=== PATIENT | male | born 1930 | race Caucasian/White ===

== ENCOUNTER 2017-03-16 13:59 | Emergency (ER) | payer MEDICARE, OTHER ==
[~2017-03-16] VITALS: Ht 165.1 cm; Wt 61.7 kg
--- NOTE | 2017-03-16 14:50 | NUR ---
[id number] FROM HOME FLU LIKE SYMPTOMS SINCE YESTERDAY. VSS
--- NOTE | 2017-03-16 15:15 | NUR ---
DR. HODGES AT BEDSIDE
[2017-03-16] MEDS ORDERED: IV NS 0.9% 500 ML BAG IV ONE (15:30)
[2017-03-16 15:50] LABS: BASOPHILS % (AUTO) 0.2 % (0.0-2.0); EOSINOPHILS % (AUTO) 0.1 % (0.0-6.0); HEMATOCRIT 37 % (39-51); HEMOGLOBIN 12.8 g/dL (13.5-17.5); LYMPHOCYTES # (AUTO) 0.4 /CMM (0.8-4.8); LYMPHOCYTES % (AUTO) 4.1 % (20.0-44.0); MEAN CORPUSCULAR HEMOGLOBIN 30 PG (26.0-33.0); MEAN CORPUSCULAR HGB CONC 34 g/dl (31.0-36.0); MEAN CORPUSCULAR VOLUME 87 fL (80-96); MONOCYTES # (AUTO) 0.4 /CMM (0.1-1.30); MONOCYTES % (AUTO) 4.7 % (2.0-12.0); NEUTROPHILS # (AUTO) 8.4 /CMM (1.8-8.9); NEUTROPHILS % (AUTO) 90.9 % (43.0-81.0); PLATELET COUNT (AUTO) 165 /CMM (150-450); RDW COEFFICIENT OF VARIATION 15.7 (11.5-15.0); RED BLOOD CELL COUNT(AUTO) 4.28 MIL/uL (4.5-6.0); WHITE BLOOD COUNT (AUTO) 9.3 K/uL (4.3-11.0)
[2017-03-16 15:55] LABS: CALCIUM, SERUM 8.7 mg/dL (8.5-10.1); CARBON DIOXIDE 24 mmol/L (21-32); CHLORIDE 101 mmol/L (98-107); CREATININE 1.1 mg/dL (0.6-1.3); GLUCOSE 108 mg/dL (74-106); POTASSIUM 4.3 mmol/L (3.5-5.1); SODIUM SERUM 130 mmol/L (136-145); UREA NITROGEN, BLOOD 19 mg/dL (7-18)
[2017-03-16 15:58] LABS: INR 1.99 (0.87-1.13); PROTHROMBIN TIME 20.7 SECS (9.5-12.7)
[2017-03-16 16:01] LABS: ALANINE AMINOTRANSFERASE 8 U/L (12-78); ALKALINE PHOSPHATASE 94 U/L (46-116); ASPARTATE AMINOTRANSFERASE 37 U/L (15-37); BILIRUBIN,DIRECT 0.2 mg/dL (0.0-0.2); BILIRUBIN,TOTAL 1.3 mg/dL (0.2-1.0); TOTAL PROTEIN, SERUM 6.4 g/dL (6.4-8.2)
[2017-03-16 16:03] LABS: TROPONIN I 0.023 ng/mL (0.00-0.056)
[2017-03-16] MEDS ORDERED: ONDANSETRON HCL/PF 4 MG/2 ML VIAL ONE (16:19)
[2017-03-16] MEDS ORDERED: ONDANSETRON HCL/PF 4 MG/2 ML VIAL IV ONE (16:30)
[2017-03-16] MEDS ORDERED: FLUT9.9S BNOSTRILS (16:45)
[2017-03-16] MEDS ORDERED: ATEN25TA PO (16:45)
[2017-03-16] MEDS ORDERED: DOXY100C2 PO (16:45)
[2017-03-16] MEDS ORDERED: LATA2.5D7 EACHEYE (16:45)
[2017-03-16] MEDS ORDERED: LOSA100T3 PO (16:45)
[2017-03-16] MEDS ORDERED: SULF1TAB48 PO (16:45)
[2017-03-16] MEDS ORDERED: ALBU18HF2 INH (16:45)
[2017-03-16] MEDS ORDERED: RANI150T12 PO (16:45)
[2017-03-16] MEDS ORDERED: PRED20TA PO (16:45)
[2017-03-16] MEDS ORDERED: WARF5TAB6 PO (16:45)
[2017-03-16] MEDS ORDERED: CARB-93 PO (16:45)
[2017-03-16] MEDS ORDERED: FINA5TAB3 PO (16:45)
[2017-03-16] MEDS ORDERED: TERA2CAP4 PO (16:45)
[2017-03-16] MEDS ORDERED: ATOR40TA PO (16:45)
[2017-03-16 17:09] LABS: APPEARANCE,URINE Slightly Cloudy (CLEAR); BILIRUBIN,URINE Negative (NEGATIVE); BLOOD, URINE Large Ery/uL (NEGATIVE); COLOR,URINE Yellow (YELLOW); KETONES,URINE Trace (NEGATIVE); LEUKOCYTE ESTERASE ,URINE Moderate (NEGATIVE); NITRITE, URINE Positive (NEGATIVE); PROTEIN,URINE 100 mg/dl (NEGATIVE); UGLUCOSE Negative (NEGATIVE); UROBILINOGEN,URINE 0.2 EU/dL (0.2)
[2017-03-16 17:21] LABS: BACTERIA,URINE Moderate /HPF (None Seen); RBC,URINE 21-50 /HPF (0-2); SQUAMOUS EPITHELIAL CELL,UR Few /HPF (None Seen)
--- NOTE | 2017-03-16 17:35 | NUR ---
[facility], EXPECTING A CALL BACK FROM [facility]
[2017-03-16] MEDS ORDERED: CEFTRIAXONE 1GM BAG (ER ONLY) 1 GM/50 ML PIGGYBACK IV ONE (18:00)
[2017-03-16] MEDS ORDERED: CEFTRIAXONE 1 G VIAL ONE (18:13)
--- NOTE | 2017-03-16 18:18 | NUR ---
PT ON BED. RESTING. AT BS. VSS
--- NOTE | 2017-03-16 19:05 | NUR ---
REPORT GIVEN BY NURIA, WILL CONTINUE CARE
--- NOTE | 2017-03-16 20:50 | NUR ---
PT TO BE TRANSFERRED TO [facility] ER TO ER. ADM. ER [phone]. ETA P/U AT [facility]
--- NOTE | 2017-03-16 20:56 | NUR ---
REPORT GIVEN TO SURY RUSSO. AWAITING TRANSPORT
[2017-03-16] MEDS ORDERED: ATENOLOL 50 MG TABLET PO ONE (21:00)
[2017-03-16] MEDS ORDERED: ATENOLOL 50 MG TABLET ONE (21:16)
[2017-03-16 21:19] VITALS: BP 193/76
--- NOTE | 2017-03-16 22:22 | NUR ---
REPORT GIVEN TO BLS TRANSPORT
== END 2017-03-16 22:48 | disposition short-term general hospital (02) ==
LOC: ER 14:03
DX: N39.0 Urinary tract infection, site not specified (principal); E87.1 Hypo-osmolality and hyponatremia; R26.9 Unspecified abnormalities of gait and mobility; G20 Parkinson's disease; I48.91 Unspecified atrial fibrillation; I69.354 Hemiplegia and hemiparesis following cerebral infarction affecting left non-dominant side; I10 Essential (primary) hypertension; Z79.01 Long term (current) use of anticoagulants; Z86.73 Personal history of transient ischemic attack (TIA), and cerebral infarction without residual deficits
CPT/HCPCS: 36415; 70450; 71045; 80048; 80076; 80305; 81001; 82962; 84484; 85025; 85730; 87077; 87086; 87186; 93005; 96361; 96365; 96375; 99285; A4606; J0696; J2405; J7040; 81000-TC; Z7610